=== PATIENT | male | born 1980 | race Caucasian/White ===

== ENCOUNTER 2017-08-24 11:17 | Emergency (ER) | payer OTHER ==
[2017-08-24 11:23] VITALS: BP 99/74; PULSE 63; TEMP 98.3; BMI 28.1
--- NOTE | 2017-08-24 11:34 | PDOC ---
History of Present Illness - General Chief Complaint: Psychiatric Stated Complaint: PSYCH EVALUATION Time Seen by Provider: 08/24/17 11:31 - History of Present Illness Initial Comments: 08/24/17 11:34 37 yo M with h/o GERD, anxiety, and depression who p/w mood disturbance. Fiance at bedside to assist in report. Patient reports increased increased agitation, hypersomnolence, annhedonia, lethargy over the past 1 1/2 weeks. Patient states that he was referred to ED d/t symptoms and complaint of " something seeming wrong." Fiance reports that patient confused with garbled speech a few times within the past week and "catatonic" appearing. Patient recently moved from [place] to [facility]. Currently, does not f/w psych ( within past 5 years ; receives medication from PMD). On Ativan PRN, and vibryd ( Vilazadone). No recent medication changes. Reports multiple social stressors with work. Denies h /o manic like sx. Patient states that he has psych apt. scheduled for (09/04), but could not wait to be seen d/t urgency of symptoms and interference with work and social life. Denies SI, HI, F/C, N/V, CP, SOB, abdominal pain, diarrhea, constipation, urinary complaints, weakness, lightheadedness, sensory changes;. PMH: as noted above. Denies h/o SI, or HI, or prior suicide attempts. Was on Venlafaxine 12 years. ROS: as noted above SH: denies tobacco, IVDA, Etoh Past History - Past Medical History Allergies/Adverse Reactions: Allergies Allergy/AdvReac Type Severity Reaction Status Date / Time pseudoephedrine Allergy Verified 08/24/17 11:23 [From Sudafed] Home Medications: Ambulatory Orders Alprazolam [Xanax] 0.25 mg PO BID PRN 08/24/17 Vilazodone Hydrochloride [Viibryd] 40 mg PO DAILY 08/24/17 COPD: No Psychiatric Problems: Yes (depression, anxiety) - Surgical History Abdominal Surgery: Yes (testicle, hernia) - Suicide/Smoking/Psychosocial Hx Smoking History: Never smoked Information on smoking cessation initiated: No Hx Alcohol Use: No Drug/Substance Use Hx: No Substance Use Type: None Review of Systems - Review of Systems Comments:: 08/24/17 11:34 GENERAL/CONSTITUTIONAL: + fatigue. No fever or chills. No weakness. HEAD, EYES, EARS, NOSE AND THROAT: No change in vision. No ear pain or discharge. No sore throat. CARDIOVASCULAR: No chest pain or shortness of breath RESPIRATORY: No cough, wheezing, or hemoptysis. GASTROINTESTINAL: No nausea, vomiting, diarrhea or constipation. GENITOURINARY: No dysuria, frequency, or change in urination. MUSCULOSKELETAL: No joint or muscle swelling or pain. No neck or back pain. SKIN: No rash NEUROLOGIC: No headache, vertigo, loss of consciousness, or change in strength/ sensation. Psych: + Depressed and anxious mood. ENDOCRINE: No increased thirst. No abnormal weight change HEMATOLOGIC/LYMPHATIC: No anemia, easy bleeding, or history of blood clots. ALLERGIC/IMMUNOLOGIC: No hives or skin allergy. *Physical Exam - Vital Signs Last Vital Signs Temp Pulse Resp BP Pulse Ox 98.3 F 63 19 99/74 99 08/24/17 11:21 08/24/17 11:21 08/24/17 11:21 08/24/17 11:21 08/24/17 11:21 - Physical Exam Comments: 08/24/17 11:34 GENERAL: Awake, alert, and fully oriented, in no acute distress HEAD: No signs of trauma, normocephalic, atraumatic EYES: PERRLA, EOMI, sclera anicteric, conjunctiva clear ENT: Auricles normal inspection, hearing grossly normal, nares patent, oropharynx clear without exudates. Moist mucosa NECK: Normal ROM, supple, no lymphadenopathy, JVD, or masses LUNGS: No distress, speaks full sentences, clear to auscultation bilaterally HEART: Regular rate and rhythm, normal S1 and S2, no murmurs, rubs or gallops, peripheral pulses normal and equal bilaterally. ABDOMEN: Soft, nontender, normoactive bowel sounds. No guarding, no rebound. No masses EXTREMITIES : Normal inspection, Normal range of motion, no edema. No clubbing or cyanosis. NEUROLOGICAL: Cranial nerves II through XII grossly intact. Normal speech, normal gait, no focal sensorimotor deficits Psych: Patient appears dishoveled. Irritable and Labile affect, congruent with mood. Behavior is cooperative. No SI/HI, delusions, hallucinations. SKIN: Warm, Dry, normal turgor, no rashes or lesions noted Medical Decision Making - Medical Decision Making 08/24/17 12:41 37 yo M with h/o GERD, anxiety, and depression who p/w mood disturbance/ depression. Patient denies SI/HI, VSS, alert and oriented x 3. No evidence of self harm, delusions, hallucinations, or altered mental status. Patient with full capacity. Patient requests d/c from ED to outside facility with psych in house. Not able to obtain laboratory evluation and workup for underlying electrolyte abnml, toxic or metabolic-acid base disturbance, or underlying infection. Patient not at risk for self harm, SI, or HI. ED Course: Patient stable for d/c and advised to f/u with outside psych. Patient significant other states that she desires to be seen at [facility] where there is in house psych. She states that [facility] has psych and was recently referred there by family friend who is a psychiatrist. *DC/Admit/Observation/Transfer Diagnosis at time of Disposition: Depressed affect - Discharge Dispostion Disposition: HOME Condition at time of disposition: Stable Decision to Admit order: No - Referrals - Patient Instructions Printed Discharge Instructions: DI for Depression -- Adult Additional Instructions: Please return to the emergency department with any new or worsening symptoms or concerns. Please follow up with your pyschiatrist within 24 hours as discussed. - Post Discharge Activity - Attestations Physician Attestion: 08/24/17 12:55 I attest to the information provided in this note.
--- NOTE | 2017-08-24 12:35 | PDOC ---
Attending Attestation - Resident Resident Name: Trenton Clementson - ED Attending Attestation I have performed the following: I have examined & evaluated the patient, The case was reviewed & discussed with the resident, I agree w/resident's findings & plan, Exceptions are as noted - HPI HPI: 08/24/17 12:44 37y hx of depression/anxiety, gerd presents with increasing labile moods for the past week, who referred the pt to the ED his boss. 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 pt feels his current meds are not as effective. he denies any si/hi, states he just wants to feel better. no cp, sob, abd pain, n/v, headache, dizziness, vision changes. denies smoking, etoh, drug use. on exam pt in no distress cardiac: rrr pulm: cta abd: soft notnender psych: flat affect, denies SI/HI pt stable for discharge states they wanted a psych evaluation for hismeds, but as we do not have psych currently here in the ED, requests to be discharged so they can go to a place with psych in house. pt is wiht his SO, will go to [place] where they hav esome contacts pt has an appt with a new psychiatrist next week, but feels that they need a more urgent evaluation. - Physicial Exam PE: 08/28/17 05:45 see above - Medical Decision Making 08/28/17 05:45 see above
== END 2017-08-24 12:59 | disposition home or self-care (01) ==
LOC: JER 11:17
DX: F32.9 Major depressive disorder, single episode, unspecified (principal); F41.8 Other specified anxiety disorders
CPT/HCPCS: 99282-25